=== PATIENT | female | born 1980 | race Caucasian/White ===

== ENCOUNTER 2018-03-06 05:14 | Inpatient (IN) | payer OTHER ==
[2018-03-01 14:15] VITALS: BMI 33.1
[2018-03-06] MEDS ORDERED: DEXAMETHASONE SOD PHOSPHATE/PF 10 MG/ML SDV ONE (07:25)
[2018-03-06] MEDS ORDERED: ROPIVACAINE HCL 0.5% 30ML VIAL ONE (07:25)
[2018-03-06] MEDS ORDERED: fentaNYL CITRATE 250 MCG/5 ML VIAL ONE (07:50)
[2018-03-06] MEDS ORDERED: DEXAMETHASONE SOD PHOSPHATE 4 MG/1 ML VIAL ONE ×2 (07:50→09:52)
[2018-03-06] MEDS ORDERED: MIDAZOLAM HCL 2 MG/2 ML SINGLE DOSE VIAL ONE ×2 (07:51)
[2018-03-06] MEDS ORDERED: ROCURONIUM BROMIDE 50 MG/5 ML VIAL ONE (07:51)
[2018-03-06] MEDS ORDERED: PROPOFOL 20 ML ONE (07:51)
[2018-03-06] MEDS ORDERED: SUCCINYLCHOLINE CHLORIDE 200 MG/10 ML VIAL ONE (07:51)
[2018-03-06] MEDS ORDERED: OXYTOCIN 10 UNITS/ML VIAL ONE (07:55)
[2018-03-06] MEDS ORDERED: VASOPRESSIN 20 UNITS/ML VIAL IV ONE (07:56)
[2018-03-06] MEDS ORDERED: IBUPROFEN 800 MG/8 ML IJ IVPB PRN (08:10)
--- NOTE | 2018-03-06 08:14 | HP ---
History & Physical Update - History History: No Change - Physical Physical: No Change - Assessment Assessment: No Change - Plan Plan: No Change (No change in HP from 03/01/18)
[2018-03-06] MEDS ORDERED: ePHEDrine SULFATE 50 MG/1 ML AMPULE ONE (09:07)
[2018-03-06] MEDS ORDERED: KETOROLAC TROMETHAMINE 30 MG/1 ML VIAL ONE (09:52)
[2018-03-06] MEDS ORDERED: CEFAZOLIN 2 GM/D5W 2 GM/50 ML ML IVPB SCH (10:00)
[2018-03-06] MEDS ORDERED: oxyCODONE HCL 5 MG TABLET PO PRN (10:10)
[2018-03-06] MEDS ORDERED: oxyCODONE HCL 10 MG SUSTAINED ACTING TABLET PO SCH (10:15)
[2018-03-06] MEDS ORDERED: morphine SULFATE 4 MG/ML VIAL ONE (10:56)
[2018-03-06] MEDS ORDERED: morphine CARPU-JECT 4 MG/1 ML DISP.SYRIN IVPUSH ONE ×2 (10:58→11:45)
[2018-03-06] MEDS ORDERED: morphine SULFATE 4 MG/ML VIAL IVPUSH PRN (11:52)
[2018-03-06] MEDS ORDERED: HYDROmorphone *PCA* 10MG/50ML DISP.SYRIN PCA SCH (12:00)
[2018-03-06] MEDS ORDERED: HYDROmorphone *PCA* 10MG/50ML DISP.SYRIN PCA ONE (12:02)
--- NOTE | 2018-03-06 12:09 | OP ---
DATE OF OPERATION: 03/06/2018 PREOPERATIVE DIAGNOSIS: Leiomyomatous uterus, menorrhagia. OPERATION: Abdominal myomectomy. POSTOPERATIVE DIAGNOSIS: Leiomyomatous uterus, menorrhagia. SURGEON: Trevor Meza MD OCCUPATIONAL HEALTH NURSE SUPERVISOR: GUNJAN Irizarry. MD allen. ANESTHESIA: General. ANESTHESIOLOGIST: Dr. Wray DESCRIPTION OF PROCEDURE: The patient was taken to the operating room and placed in supine position, prepped and draped in the usual sterile fashion. A time-out was performed in accordance with hospital regulations. Guzman catheter was inserted into the bladder. Pfannenstiel skin incision was made with a scalpel. Cautery was then used to open layers of the abdominal wall to the fascia. The fascia was cut in the midline, and cautery was then used to open the fascia in smiling fashion. Kochers were then used to bluntly and sharply dissect the rectus muscle off the fascia. The muscle was split in the midline. Peritoneal cavity was then entered and carried upward and downward. A large 14- to 15-cm uterus was exteriorized and anterior palpated at least an 11-cm myoma and also several myomas anterior and posteriorly. Tourniquet was placed in the clear space of the broad space of the uterus and secured with Lissett clamps. Pitocin was then infiltrated anteriorly into the serosa of the uterus. Cautery was then used to make a vertical incision up and from the fundus. Blunt and sharp dissection was used to exteriorize the 11- to 12-cm myoma out of the anterior aspect of the uterus. Palpation of the endometrial cavity revealed no endometrial submucosa myomas. After sharp and blunt dissection, and the 11- to 12-cm myoma was enucleated out, hemostasis was done with cautery, continuous and locking stitch using 0 Vicryl suture was then used to approximate the muscle. Serosa was then used with a 2-0 V-Lock suture was then used to close the serosa of the uterus. Posteriorly, several myomas were palpated. Pitressin was infiltrated, and cautery was then used to enter the serosa and the muscle of the uterus. Three myomas were then enucleated out and submitted to Pathology. The muscle was approximated using 0 Vicryl suture, and V-Lock suture was then used to close the serosa. After that was done and hemostasis was achieved anteriorly, two other myomas were noted. Pitressin was infiltrated in serosa, and cautery was then used to open the serosa of the uterus, and the myomas were then enucleated out using blunt and sharp dissection. Muscle was approximated in midline using 0 Vicryl, and V-Lock suture was used to close the serosa anteriorly. Hemostasis was achieved. Interceed was placed covering both the anterior and posterior access of the incision. Uterus was then exteriorized. Ovaries were noted to be normal. Right tube appeared to be a little hydrosalpinx. Left tube appeared to be normal. Peritoneum was then closed using 0 Vicryl suture in continuous fashion. The fascia was then closed using 0 Vicryl suture in two parts. Subcutaneous was approximated using 2-0 Vicryl, and skin was then closed using 3-0 Vicryl in subcuticular fashion. The wound was washed and dressed. The patient tolerated the procedure well and was taken to the recovery room in stable condition. Estimated blood loss 150 mL. TREVOR MEZA M.D. [id number]
[2018-03-06] MEDS: LACTATED RINGERS SOLUTION 1,000 ML IV SCH (16:14)
[2018-03-06] MEDS: ONDANSETRON 4 MG/2 ML VIAL IVPUSH PRN (16:15)
[2018-03-06] MEDS: CEFAZOLIN 2 GM/D5W 2 GM/50 ML ML IVPB SCH (17:22)
[2018-03-07] MEDS: LACTATED RINGERS SOLUTION 1,000 ML IV SCH (01:30)
[2018-03-07] MEDS: CEFAZOLIN 2 GM/D5W 2 GM/50 ML ML IVPB SCH (01:30)
[2018-03-07] MEDS ORDERED: oxyCODONE HCL 5 MG TABLET PO PRN ×2 (08:10→09:22)
[2018-03-07 09:16] LABS: BASO % 0.2 % (0-2.0); HEMATOCRIT 23.6 % (32.4-45.2); HEMOGLOBIN 7.6 GM/dL (10.7-15.3); LYMPH % 20.2 % (8-40); MCH 26.8 pg (25.7-33.7); MCHC 32.3 g/dl (32.0-36.0); MEAN PLT VOLUME 8.6 fl (7.5-11.1); MONO % 7.8 % (3.8-10.2); NEUT % 71.8 % (42.8-82.8); PLATELET COUNT 193 K/MM3 (134-434); RBC 2.85 M/mm3 (3.60-5.2); RDW 17.8 % (11.6-15.6); WHITE BLOOD COUNT 12.2 K/mm3 (4.0-10.0)
[2018-03-07] MEDS ORDERED: PCA PUMP KEY 1 EACH EACH ONE (09:25)
--- NOTE | 2018-03-07 09:41 | PN ---
Progress Note (short form) - Note Progress Note: POD #1 - s/p abdominal myomectomy under GA with LONG GOODS DRIER for post op pain management. VSS. Pt. doing well, resting comfortably in bed. C/o some nausea - to get Zofran now. LONG GOODS DRIER discontinued, po oxycodone ordered. No apparent anesthetic complications noted. Continue current care.
[2018-03-07] MEDS: ONDANSETRON 4 MG/2 ML VIAL IVPUSH PRN (09:42)
[2018-03-07 09:43] LABS: ANION GAP 7 (8-16); BLOOD UREA NITROGEN 9 mg/dL (7-18); CHLORIDE 108 mmol/L (98-107); CO2 26 mmol/L (21-32); CREATININE 0.5 mg/dL (0.55-1.02); GLUCOSE,RANDOM 102 mg/dL (74-106); POTASSIUM 3.7 mmol/L (3.5-5.1); SODIUM 141 mmol/L (136-145)
[2018-03-07] MEDS: ENOXAPARIN NA (PORCINE) 40 MG/0.4 ML DISP.SYRIN SQ SCH (09:58)
--- NOTE | 2018-03-07 10:06 | PN ---
Progress Note, Physician Chief Complaint: Status post myomectomy History of Present Illness: 37 yo status post myomectomy, seen and evaluated. She's lying in bed, no complaints. - Current Medication List Current Medications: Active Medications Acetaminophen (Tylenol -) 650 mg PO Q4H PRN PRN Reason: FEVER Enoxaparin Sodium (Lovenox -) 40 mg SQ DAILY [facility] Last Admin: 03/07/18 09:58 Dose: 40 mg Fentanyl (Sublimaze Injection -) 50 mcg IVPUSH [id number] PRN PRN Reason: PAIN-PACU ORDER X 4 DOSES ONLY Lactated Ringer's (Lactated Ringers Solution) 1,000 mls @ 125 mls/hr IV ASDIR [facility] Last Admin: 03/07/18 01:30 Dose: 125 mls/hr Ibuprofen (Caldolor Injection -) 800 mg IVPB Q8H PRN PRN Reason: FEVER Last Admin: 03/06/18 20:00 Dose: 800 mg Oxycodone HCl (Roxicodone -) 5 mg PO Q3H PRN PRN Reason: PAIN LEVEL 1-5 Oxycodone HCl (Roxicodone -) 10 mg PO Q3H PRN PRN Reason: PAIN LEVEL 6-10 - Objective Vital Signs: Vital Signs Temperature 98.3 F 03/07/18 06:00 Pulse Rate 64 03/07/18 06:00 Respiratory Rate 20 03/07/18 06:00 Blood Pressure 88/41 03/07/18 06:00 O2 Sat by Pulse Oximetry (%) 2 L 03/06/18 21:00 Constitutional: Yes: Well Nourished Eyes: Yes: WNL Neck: Yes: Supple Cardiovascular: Yes: Regular Rate and Rhythm Respiratory: Yes: Regular Gastrointestinal: Yes: Normal Bowel Sounds Genitourinary: Yes: Guzman Present Wound/Incision: Yes: Clean/Dry Neurological: Yes: Alert, Oriented Psychiatric: Yes: Alert, Oriented Labs: CBC, BMP 03/07/18 08:45 03/07/18 08:45 Problem List - Problems (1) Status post myomectomy Code(s): Z98.890 - OTHER SPECIFIED POSTPROCEDURAL STATES Assessment/Plan Status post myomectomy Stable Ambulation Analgesia as needed Continue post op care
[2018-03-07] MEDS: oxyCODONE HCL 5 MG TABLET PO PRN ×3 (10:26→22:54)
[2018-03-07] MEDS: ACETAMINOPHEN 325 MG TABLET (FP) PO PRN ×3 (10:27→19:51)
[2018-03-07] MEDS: SIMETHICONE 80 MG TAB.CHEW (FP) PO PRN (12:06)
--- NOTE | 2018-03-07 13:11 | PATH ---
Surgical Pathology Report Patient Name: JERSEY VARGAS [facility]. Rec. #: [id number] /Age/Gender: 1980 (Age: 37) / F Account: [id number] Location: [facility] OBS/ITEM PROCESSOR Taken: 03/06/2018 Received: 03/06/2018 Reported: 03/07/2018 Physicians: Marilynn Ordoñez M.D. Specimen(s) Received FIBROID, MYOMA,LEIOMYOMA Clinical History Fibroids Final Diagnosis UTERUS, FIBROIDS, ABDOMINAL MYOMECTOMY: LEIOMYOMA(TA) WITH FOCAL DEGENERATIVE CHANGES. Electronically Signed Teena Martinez M.D. Gross Description Received in formalin labeled "fibroids," is a 390 g aggregate of 6 hatch, firm to rubbery nodules, consistent with fibroids. The fibroids range from 1.5-10.5 cm in greatest dimension. The cut surfaces of the 5 smaller fibroids are hatch, firm to rubbery with whorled architecture. No areas of hemorrhage or necrosis are identified. The cut surface of the largest fibroid is pink-hatch with degenerative parenchyma. Armament Repairer sections are submitted in 8 cassettes as follows: 1-3-smaller fibroids; 4-8-largest fibroid. /03/06/2018 saudi03/06/2018
--- NOTE | 2018-03-07 21:01 | OP ---
Operative Note - Note: Operative Date: 03/06/18 Pre-Operative Diagnosis: Leiomyomatous uterus. menorrhagia. abdominal pain Operation: Abdominal myomectomy Findings: multiple myomas removed Post-Operative Diagnosis: Same as Pre-op Surgeon: Marilynn Ordoñez Shuttle Fitting Supervisor: Rajeev Zhang Anesthesiologist/SHAKE LOADER: Moreno Wray Anesthesia: General Estimated Blood Loss (mls): 150 Operative Report Dictated: Yes
[2018-03-08 08:58] LABS: BASO % 0.7 % (0-2.0); EOS % 0.5 % (0-4.5); HEMATOCRIT 22.4 % (32.4-45.2); HEMOGLOBIN 7.3 GM/dL (10.7-15.3); LYMPH % 26.4 % (8-40); MCHC 32.5 g/dl (32.0-36.0); MEAN CELL VOLUME 83.2 fl (80-96); MEAN PLT VOLUME 8.4 fl (7.5-11.1); MONO % 7.4 % (3.8-10.2); PLATELET COUNT 194 K/MM3 (134-434); RBC 2.69 M/mm3 (3.60-5.2); RDW 18.1 % (11.6-15.6)
[2018-03-08 09:38] VITALS: BP 98/57; PULSE 77; TEMP 98.6
[2018-03-08] MEDS: ENOXAPARIN NA (PORCINE) 40 MG/0.4 ML DISP.SYRIN SQ SCH (10:33)
[2018-03-08] MEDS: ACETAMINOPHEN 325 MG TABLET (FP) PO PRN (10:39)
[2018-03-08] MEDS: SIMETHICONE 80 MG TAB.CHEW (FP) PO PRN (10:40)
[2018-03-08] MEDS: oxyCODONE HCL 5 MG TABLET PO PRN (10:40)
--- NOTE | 2018-03-08 13:26 | DS ---
Physical Exam-TIP FIXER Vital Signs: Vital Signs Temperature 98.6 F 03/08/18 09:34 Pulse Rate 77 03/08/18 09:34 Respiratory Rate 20 03/08/18 09:34 Blood Pressure 98/57 03/08/18 09:34 O2 Sat by Pulse Oximetry (%) 2 L 03/06/18 21:00 Constitutional: Yes: Well Nourished, No Distress Neck: Yes: WNL Cardiovascular: Yes: WNL, Regular Rate and Rhythm Respiratory: Yes: WNL, Regular Gastrointestinal: Yes: WNL, Normal Bowel Sounds, Soft, Abdomen, Obese Musculoskeletal: Yes: WNL Extremities: Yes: WNL Wound/Incision: Yes: Clean/Dry, Well Approximated, Steri Strips, Open to air Labs: CBC, BMP 03/08/18 08:00 03/07/18 08:45 Discharge Summary Reason For Visit: Leomyomatous uterus/ Abdominal Pain Current Active Problems Status post myomectomy (Acute) Procedures: Principal: Abdominal myomectomy Hospital Course: Unremarkable Condition: Good - Instructions Diet, Activity, Other Instructions: Dr. Marilynn Ordoñez Software Quality Assurance Analyst discharge instructions Physical activity Resume your normal everyday activity as tolerated no heavy lifting or exercise until seen by your surgeon. You may walk unlimited dianne of and climb stairs. You may resume driving the car when you feel safe and comfortable behind the wheel. No sexual activity as instructed by Dr. Ordoñez. Wound care If you have a bandage, leave it on, and keep dry for 48-72 hours. After that time discard the outer bandage. If they are tapes on the skin under the out of bandage leave them in place. They will peel off in the next 7 to 10 days. Do Not Peel them off. You may shower the day after surgery. If there are tapes present on the skin, you may shower over them. Diet There are no dietary restrictions. Eat healthy, high-fiber foods. Drink 6 to 8 glasses of liquid each day. This will assist in keeping your bowels are regular. Pain management You may take Tylenol or acetaminophen or Ibuprofen (for example, Motrin, Advil etc.) from my pain prescription medication is ordered should be taken as prescribed for moderate to severe pain. Call Dr. Ordoñez for any of the following: Severe pain not relieved by medication Fever of 101 or higher Excessive bleeding or drainage on dressing Inability to urinate Call the office at [phone] for an appointment in seven days. Disposition: HOME - Home Medications Comprehensive Discharge Medication List: Ambulatory Orders Ferrous Sulfate [Feosol] 325 mg PO DAILY 03/01/18 Loratadine [Claritin] 10 mg PO PRN PRN 03/01/18 Oxycodone HCl/Acetaminophen [Percocet 5-325 mg Tablet] 1 - 2 tab PO Q6H #20 tab MDD 6 03/08/18
== END 2018-03-08 13:30 | disposition home or self-care (01) | DRG 519 ==
LOC: JSAMEDAYSX 05:14 → EDSTATUS 08:00 → J3W 12:49
PROVIDERS: ADMIT Obstetrics & Gynecology; ATTEND Obstetrics & Gynecology
PROC: 0UB90ZZ Excision of Uterus, Open Approach (ICD-10-PCS; principal; 2018-03-06 08:00)
DX: D25.9 Leiomyoma of uterus, unspecified (principal); N92.0 Excessive and frequent menstruation with regular cycle; Z68.33 Body mass index [BMI] 33.0-33.9, adult; E66.9 Obesity, unspecified
CPT/HCPCS: 36415; 80048; 84703; 85025; 86850; 86900; 86901; 88305-TC; 94760

== ENCOUNTER 2021-02-18 08:13 | Emergency (ER) | payer OTHER ==
[2021-02-18 08:38] VITALS: BMI 38.9
[2021-02-18] MEDS ORDERED: ACETAMINOPHEN 500 MG TABLET (FP) PO ONE (08:53)
[2021-02-18] MEDS ORDERED: ACETAMINOPHEN 500 MG TABLET (FP) ONE (08:59)
[2021-02-18 10:52] LABS: BASO % 0.3 % (0-2.0); HEMATOCRIT 34.9 % (32.4-45.2); HEMOGLOBIN 12.1 GM/dL (10.7-15.3); MCH 31.4 pg (25.7-33.7); MCHC 34.6 g/dl (32.0-36.0); MEAN CELL VOLUME 90.7 fl (80-96); NEUT % 83.7 % (42.8-82.8); PLATELET COUNT 178 K/MM3 (134-434); RBC 3.85 M/mm3 (3.60-5.2); WHITE BLOOD COUNT 5.6 K/mm3 (4.0-10.0)
[2021-02-18 10:57] LABS: EPI CELLS >36 /uL (0-25.1); HYALINE CASTS 6 /uL (0-3.1); PH,URINE 6.5 (5.0-8.0); URINE APPEARANCE CLOUDY; URINE BACTERIA 2261 /uL (0-1359); URINE BILIRUBIN NEGATIVE (NEGATIVE); URINE COLOR DK YELLOW; URINE GLUCOSE (UA) NEGATIVE (NEGATIVE); URINE KETONE 3+ (NEGATIVE); URINE LEUK ESTERASE 3+ (NEGATIVE); URINE NITRITE NEGATIVE (NEGATIVE); URINE PROTEIN TRACE (NEGATIVE); URINE RBC 12 /uL (0-23.9); URINE UROBILINOGEN 0.2 mg/dL (0.2-1.0); URINE WBC 337 /uL (0-25.8)
[2021-02-18 10:59] LABS: INR 0.96 (0.83-1.09); PROTHROMBIN TIME (PATIENT) 11.6 SEC (9.7-13.0)
[2021-02-18 11:02] LABS: ACTIVATED PTT 32.3 SECONDS (25.2-36.5)
[2021-02-18 11:17] LABS: CHLORIDE 106 mmol/L (98-107); SODIUM 136 mmol/L (136-145)
[2021-02-18 11:19] LABS: CALCIUM 8.4 mg/dL (8.5-10.1)
[2021-02-18 11:20] LABS: ALBUMIN 2.7 g/dl (3.4-5.0); ANION GAP 10 MMOL/L (8-16); BLOOD UREA NITROGEN 6.1 mg/dL (7-18); CO2 21 mmol/L (21-32); GLUCOSE,RANDOM 78 mg/dL (74-106)
[2021-02-18 11:23] LABS: CREATININE 0.7 mg/dL (0.55-1.3); SGOT/AST 70 U/L (15-37); SGPT/ALT 42 U/L (13-61)
[2021-02-18 11:24] LABS: LDH 287 U/L (84-246); TOT PROT 6.4 g/dl (6.4-8.2)
[2021-02-18 11:26] LABS: ALK PHOS 257 U/L (45-117)
[2021-02-18 11:32] LABS: BILIRUBIN,TOTAL 0.4 mg/dL (0.2-1)
[2021-02-18 13:37] VITALS: BP 90/55; PULSE 87; TEMP 98.2
== END 2021-02-18 13:55 | disposition home or self-care (01) ==
LOC: EDSEX → JER 08:13
DX: U07.1 COVID-19 (principal)
CPT/HCPCS: 36415; 71045-TC-FY; 76816-TC; 80053; 81003; 82550; 82728; 83605; 83615; 84484; 85025; 85610; 85730; 86140; 87086; 87186; 87804; 93005; 93010; 93970-TC; 99283-25

== ENCOUNTER 2021-02-27 18:20 | Inpatient (IN) | payer OTHER ==
[2021-02-27] MEDS ORDERED: CITRIC ACID/SODIUM CITRATE 30 ML UNIT-DOSE CUP PO ONE (19:45)
[2021-02-27] MEDS ORDERED: ELECTROLYTE-148 SOLN 500 ML IV SCH ×2 (19:45)
[2021-02-27 20:52] LABS: BASO % 0.5 % (0-2.0); EOS % 0.6 % (0-4.5); HEMATOCRIT 32.7 % (35.4-49); HEMOGLOBIN 11.2 GM/dL (11.7-16.9); LYMPH % 14.2 % (8-40); MCH 30.8 pg (25.7-33.7); MCHC 34.1 g/dl (32.0-35.9); MEAN CELL VOLUME 90.3 fl (80-96); MEAN PLT VOLUME 9.3 fl (7.5-11.1); MONO % 7.5 % (3.8-10.2); NEUT % 77.2 % (42.8-82.8); PLATELET COUNT 350 K/MM3 (134-434); RBC 3.62 M/mm3 (4.00-5.60); RDW 13.7 % (11.9-15.9); WHITE BLOOD COUNT 8.7 K/mm3 (4.0-10.0)
[2021-02-27 21:03] LABS: INR 0.93 (0.83-1.09); PROTHROMBIN TIME (PATIENT) 11.5 SEC (9.7-13.0)
[2021-02-27 21:10] VITALS: BMI 38.6
[2021-02-27 21:12] LABS: BLOOD UREA NITROGEN 9.4 mg/dL (7-18)
[2021-02-27 21:16] LABS: CREATININE 0.8 mg/dL (0.55-1.3)
[2021-02-27] MEDS ORDERED: DEXTROSE 5%-LACTATED RINGERS 1,000 ML IV SCH (21:30)
[2021-02-27] MEDS ORDERED: PROPOFOL 20 ML ONE (21:50)
[2021-02-27] MEDS ORDERED: PHENYLEPHRINE HCL 10 MG/1 ML SINGLE DOSE VIAL ONE (21:50)
[2021-02-27] MEDS ORDERED: morphine SULFATE/PF 0.5 MG/ML (2cc Syringe - QUVA) ONE ×2 (21:50→21:56)
[2021-02-27] MEDS ORDERED: SUCCINYLCHOLINE CHLORIDE 200 MG/10 ML SYRINGE ONE (21:50)
[2021-02-27] MEDS ORDERED: ePHEDrine SULFATE 50 MG/1 ML AMPULE ONE (21:50)
[2021-02-27 23:20] LABS: CORD BASE EXCESS -2.4 mmol/L (0-2); CORD HCO3 22.3 mmHg (20-29); CORD PCO2 38.3 mmHg (30-78); CORD pH 7.383 (7.14-7.44)
[2021-02-27 23:23] LABS: CORD BASE EXCESS 0.2 mmol/L (0-2); CORD HCO3 25.4 mmHg (20-29); CORD pH 7.389 (7.14-7.44)
[2021-02-28] MEDS ORDERED: METHYLERGONOVINE MALEATE 0.2 MG/1 ML AMP IM PRN (04:02)
[2021-02-28] MEDS: IBUPROFEN 600 MG TABLET (FP) PO PRN ×2 (05:32→22:54)
[2021-02-28] MEDS ORDERED: DIPHTH,PERTUSS(ACELL),TET 0.5 ML DISP.SYRIN IM ONE (10:00)
[2021-02-28] MEDS ORDERED: diphenhydrAMINE HCL 50 MG CAPSULE PO PRN (14:02)
[2021-02-28] MEDS ORDERED: diphenhydrAMINE HCL 25 MG CAPSULE (FP) PO ONE (14:08)
[2021-02-28] MEDS: SIMETHICONE 80 MG TAB.CHEW (FP) PO PRN (22:54)
[2021-03-01] MEDS ORDERED: BISACODYL 10 MG SUPP.RECT RC PRN (04:02)
[2021-03-01] MEDS: IBUPROFEN 600 MG TABLET (FP) PO PRN ×3 (08:14→22:43)
[2021-03-01] MEDS: SIMETHICONE 80 MG TAB.CHEW (FP) PO PRN ×3 (08:15→22:44)
[2021-03-01 08:59] LABS: BASO % 0.7 % (0-2.0); EOS % 0.9 % (0-4.5); LYMPH % 17.2 % (8-40); MCH 31.6 pg (25.7-33.7); MCHC 34.4 g/dl (32.0-36.0); MEAN CELL VOLUME 91.8 fl (80-96); MEAN PLT VOLUME 8.8 fl (7.5-11.1); MONO % 7.5 % (3.8-10.2); NEUT % 73.7 % (42.8-82.8); PLATELET COUNT 280 K/MM3 (134-434); RBC 2.17 M/mm3 (3.60-5.2); RDW 14.3 % (11.6-15.6); WHITE BLOOD COUNT 7.6 K/mm3 (4.0-10.0)
[2021-03-01 09:10] LABS: HEMOGLOBIN 6.9 GM/dL (10.7-15.3)
[2021-03-01] MEDS: FERROUS SO4 325 MG TABLET (FP) PO SCH ×2 (10:47→22:43)
[2021-03-01] MEDS: DOCUSATE SODIUM 100 MG CAPSULE (FP) PO SCH ×2 (11:31→22:42)
[2021-03-01 11:55] LABS: BASO % 0.6 % (0-2.0); EOS % 0.4 % (0-4.5); HEMATOCRIT 20.3 % (32.4-45.2); LYMPH % 14.3 % (8-40); MCH 31.2 pg (25.7-33.7); MCHC 33.8 g/dl (32.0-36.0); MEAN CELL VOLUME 92.5 fl (80-96); MEAN PLT VOLUME 9.2 fl (7.5-11.1); MONO % 7.9 % (3.8-10.2); NEUT % 76.8 % (42.8-82.8); PLATELET COUNT 284 K/MM3 (134-434); RDW 14.2 % (11.6-15.6); WHITE BLOOD COUNT 8.7 K/mm3 (4.0-10.0)
[2021-03-01 12:08] LABS: HEMOGLOBIN 6.9 GM/dL (10.7-15.3)
[2021-03-01] MEDS ORDERED: IRON SUCROSE INJECTION 300 MG in SODIUM CHLORIDE 250 ML IVPB ONE (12:10)
[2021-03-01] MEDS: oxyCODONE HCL 5 MG TABLET PO PRN ×2 (17:35→22:43)
[2021-03-02] MEDS: oxyCODONE HCL 5 MG TABLET PO PRN ×3 (07:41→22:00)
[2021-03-02] MEDS: IBUPROFEN 600 MG TABLET (FP) PO PRN ×3 (07:41→22:05)
[2021-03-02] MEDS: DOCUSATE SODIUM 100 MG CAPSULE (FP) PO SCH ×3 (07:42→22:04)
[2021-03-02] MEDS: FERROUS SO4 325 MG TABLET (FP) PO SCH ×3 (07:42→22:05)
[2021-03-03 01:16] LABS: BASO % 1.1 % (0-2.0); EOS % 1.3 % (0-4.5); HEMATOCRIT 18.5 % (32.4-45.2); LYMPH % 21.2 % (8-40); MCH 31.5 pg (25.7-33.7); MCHC 33.8 g/dl (32.0-36.0); MEAN CELL VOLUME 93.3 fl (80-96); MEAN PLT VOLUME 8.3 fl (7.5-11.1); MONO % 8.6 % (3.8-10.2); NEUT % 67.8 % (42.8-82.8); PLATELET COUNT 307 K/MM3 (134-434); RBC 1.98 M/mm3 (3.60-5.2); RDW 14.1 % (11.6-15.6); WHITE BLOOD COUNT 7.8 K/mm3 (4.0-10.0)
[2021-03-03 01:24] LABS: HEMOGLOBIN 6.3 GM/dL (10.7-15.3)
[2021-03-03 02:05] LABS: ANISOCYTOSIS 0; MACROCYTOSIS 0; PLATELET ESTIMATE NORMAL
[2021-03-03 08:17] LABS: BASO % 1.1 % (0-2.0); EOS % 1.2 % (0-4.5); HEMATOCRIT 17.9 % (32.4-45.2); LYMPH % 19.5 % (8-40); MCH 31.3 pg (25.7-33.7); MCHC 33.5 g/dl (32.0-36.0); MEAN CELL VOLUME 93.4 fl (80-96); MEAN PLT VOLUME 8.3 fl (7.5-11.1); MONO % 8.1 % (3.8-10.2); NEUT % 70.1 % (42.8-82.8); PLATELET COUNT 315 K/MM3 (134-434); RBC 1.92 M/mm3 (3.60-5.2); RDW 14.4 % (11.6-15.6); WHITE BLOOD COUNT 6.1 K/mm3 (4.0-10.0)
[2021-03-03] MEDS: IBUPROFEN 600 MG TABLET (FP) PO PRN ×2 (08:21→16:50)
[2021-03-03] MEDS: oxyCODONE HCL 5 MG TABLET PO PRN (08:21)
[2021-03-03] MEDS: DOCUSATE SODIUM 100 MG CAPSULE (FP) PO SCH ×2 (08:22→09:52)
[2021-03-03] MEDS: FERROUS SO4 325 MG TABLET (FP) PO SCH ×2 (08:22→09:52)
[2021-03-03 11:45] LABS: ANISOCYTOSIS 0; HELMET CELLS 0; HOWELL-JOLLY BODIES 0; MACROCYTOSIS 0; OVALOCYTE 0; PLATELET ESTIMATE NORMAL; ROULEAU 0; SICKELED CELLS 0; TARGET CELLS 0; TEAR DROP CELLS 0; TOXIC GRANULATION 0
[2021-03-03 17:48] VITALS: BP 116/49; PULSE 77; TEMP 97.9
[2021-03-03 19:52] LABS: BASO % 0.8 % (0-2.0); EOS % 0.8 % (0-4.5); HEMATOCRIT 26.4 % (32.4-45.2); LYMPH % 22.1 % (8-40); MCH 31.9 pg (25.7-33.7); MCHC 34.1 g/dl (32.0-36.0); MEAN CELL VOLUME 93.4 fl (80-96); MEAN PLT VOLUME 8.4 fl (7.5-11.1); MONO % 9.6 % (3.8-10.2); NEUT % 66.7 % (42.8-82.8); PLATELET COUNT 321 K/MM3 (134-434); RBC 2.83 M/mm3 (3.60-5.2); RDW 14.2 % (11.6-15.6); WHITE BLOOD COUNT 7.3 K/mm3 (4.0-10.0)
[2021-03-03 20:46] LABS: PLATELET ESTIMATE NORMAL
== END 2021-03-03 20:45 | disposition home or self-care (01) | DRG 540 ==
LOC: JDEL 18:20 → JLDR 19:45 → EDSEX 19:45 → J3W 02-28 04:21
PROVIDERS: ADMIT Obstetrics & Gynecology Maternal & Fetal Medicine; ATTEND Obstetrics & Gynecology Maternal & Fetal Medicine
PROC: 10D00Z1 Extraction of Products of Conception, Low, Open Approach (ICD-10-PCS; principal; 2021-02-27)
PROC: 30233N1 Transfusion of Nonautologous Red Blood Cells into Peripheral Vein, Percutaneous Approach (ICD-10-PCS; 2021-03-03)
DX: O34.29 Maternal care due to uterine scar from other previous surgery (principal); O90.81 Anemia of the puerperium; N73.6 Female pelvic peritoneal adhesions (postinfective); Z3A.38 38 weeks gestation of pregnancy; Z37.0 Single live birth
CPT/HCPCS: 36415; 36430; 36600; 80048; 82803; 85025; 85610; 85730; 86780; 86850; 86900; 86901; 86922; 88307-TC; 90715; C9803; J1756; P9058; U0003; U0005